=== PATIENT | female | born 1990 | race Caucasian/White ===

== ENCOUNTER 2017-05-19 20:31 | Emergency (ER) | payer BC ==
[~2017-05-19] VITALS: Ht 162.6 cm; Wt 88.5 kg
[~2017-05-19 20:31] MED LIST: NAPROSYN500 MG PO; PROMETHAZINE-COD5 ML PO; PSEUDOEPHEDRINE60 MG PO; SPRINTEC1 EACH PO; TESSALON PERLE100 MG PO
== END 2017-05-19 23:40 | disposition home or self-care (01) ==
LOC: ED 20:31
DX: S93.402A Sprain of unspecified ligament of left ankle, initial encounter (principal); Z90.89 Acquired absence of other organs; Z90.49 Acquired absence of other specified parts of digestive tract; Z88.8 Allergy status to other drugs, medicaments and biological substances; Z88.2 Allergy status to sulfonamides; Z88.1 Allergy status to other antibiotic agents; Z88.5 Allergy status to narcotic agent; X50.1XXA Overexertion from prolonged static or awkward postures, initial encounter
CPT/HCPCS: 73610; 99283

== ENCOUNTER 2020-03-16 18:02 | Inpatient (IN) | payer BC ==
--- OUTSIDE RECORDS SUMMARY | ~2020-03-16 | XMS | Encounter Summary ---
Demographics + + + | Address | [address] | | | [place] [address] | + + + | Home Phone | | + + + | Preferred Language | Unknown | + + + | Marital Status | Single | + + + | Taoism Affiliation | 1013 | + + + | Race | Unknown | + + + | Ethnic Group | Unknown | + + + Author + + + | Author | [facility] | | | and Luca | + + + | Organization | [facility] | | | and Sukhjinderana | + + + | Address | Unknown | + + + | Phone | Unavailable | + + + Support + + + + + | Name | Relationship | Address | Phone | + + + + + | Herb Luna | ECON | [address] | | | | | [place], [place] | | | | | [address] | | + + + + + | Arin Diop | ECON | [place], [place] | | | | | [address] | | + + + + + Care Team Providers + +------+ + | Care Petroleum Refining Firer Name | Role | Phone | + +------+ + | Sophia Medrano PCP | Unavailable | + +------+ + Reason for Visit + +--------+ + | Reason | Onset | Comments | | | Date | | + +--------+ + | Appointment | 10/05/ | | | | 2012 | | + +--------+ + Encounter Details +--------+ + + + + | Date | Type | Department | Care Team | Description | +--------+ + + + + | 10/05/ | Telephone | [facility] | Jaime Ricardo MD | Appointment | | 2012 | | GASTROENTEROLOGY | [address] [facility] | | | | | [address] [facility] | [address] [place] | | | | | [address] [place] | [address] | | | | | [address] | | | | | | [phone] | | | +--------+ + + + + Social History + +-------+ +--------+------+ | Tobacco Use | Types | Packs/Day | Years | Date | | | | | Used | | + +-------+ +--------+------+ | Never Assessed | | | | | + +-------+ +--------+------+ + + + | Sex Assigned at | Date Recorded | | | | + + + | Not on file | | + + + documented as of this encounter Miscellaneous Notes Telephone Encounter - Hillary Lowe - 10/06/2012 8:48 AM PSTPatient returned call and was s cheduled for 10/14. elephone Magdalena payne - Hillary Lowe - 10/05/2012 4:18 PM PSTLeft patient a message to schedule with Candido no at 1:30 on 10/07 or 10/14. do cumented in this encounter Plan of Treatment Not on filedocumented as of this encounter Visit Diagnoses Not on filedocumented in this encounter"
--- OUTSIDE RECORDS SUMMARY | ~2020-03-16 | XMS | Encounter Summary ---
Demographics + + + | Address | [address] | | | [place] [address] | + + + | Home Phone | | + + + | Preferred Language | Unknown | + + + | Marital Status | Single | + + + | Spiritism Affiliation | 1013 | + + + | Race | Unknown | + + + | Ethnic Group | Unknown | + + + Author + + + | Author | [facility] | | | and Luca | + + + | Organization | [facility] | | | and Sukhjinderana | [...] [place], [place] | | | | | [address] | | + + + + + | Arin Diop | ECON | [place], [place] | | | | | [address] | | + + + + + Care Team Providers + +------+ + | Care Lab Rn Name | Role | Phone | + +------+ + | Sophia Medrano PCP | Unavailable | + +------+ + Reason for Visit + +--------+ + | Reason | Onset | Comments | | | Date | | + +--------+ + | Appointment | 01/25/ | | | | 2012 | | + +--------+ + Encounter Details +--------+ + + + + | Date | Type | Department | Care Team | Description | +--------+ + + + + | 01/25/ | Telephone | [facility] | Jaime Ricardo MD | Appointment | | 2012 | | GASTROENTEROLOGY | [address] [facility] | | | | | [address] [facility] | [address] [place] | | | | | [address] [place] | [address] | | | | | [address] | | | | | | [phone] | | | +--------+ + + + + Social History + +-------+ +--------+------+ | Tobacco Use | Types | Packs/Day | Years | Date | | | | | Used | | + +-------+ +--------+------+ | Never Smoker | | | | | + +-------+ +--------+------+ + +---+---+---+ | Smokeless Tobacco: | | | | | Never Used | | | | + +---+---+---+ + + +---------+ + | Alcohol Use | Drinks/Week | oz/Week | Comments | + + +---------+ + | No | | | | + + +---------+ + + + + | Sex Assigned at | Date Recorded | | | | + + + | Not on file | | + + + documented as of this encounter Miscellaneous Notes Telephone Encounter - Thelma Villavicencio RN - 01/25/2013 5:28 PM PDTNoted elephone Renetta Villalobos - 01/25/2013 4:42 PM PDTPatient called to let Jose know she has a appo intment at [facility] On February 01 at 9:00. If you have any questions please call her isabel k on her home number. documen todd in this encounter Plan of Treatment Not on filedocumented as of this encounter Visit Diagnoses Not on filedocumented in this encounter"
--- OUTSIDE RECORDS SUMMARY | ~2020-03-16 | XMS | Encounter Summary ---
Demographics + + + | Address | [address] | | | [place] [address] | + + + | Home Phone | | + + + | Preferred Language | Unknown | + + + | Marital Status | Single | + + + | Congregation Affiliation | 1013 | + + + | Race | Unknown | + + + | Ethnic Group | Unknown | + + + Author + + + | Author | [facility] | | | and Luca | + + + | Organization | [facility] | | | and Sukhjinderana | [...] [place], [place] | | | | | [address] | | + + + + + | Arin Diop | ECON | [place], [place] | | | | | [address] | | + + + + + Care Team Providers + +------+ + | Care Ota Name | Role | Phone | + +------+ + | Sophia Medrano | PCP | Unavailable | + +------+ + Reason for Visit +--------+--------+ + | Reason | Onset | Comments | | | Date | | +--------+--------+ + | Other | 02/16/ | | | | 2012 | | +--------+--------+ + Encounter Details +--------+ + + + + | Date | Type | Department | Care Team | Description | +--------+ + + + + | 02/16/ | Telephone | [facility] | Jaime Ricardo MD | Other | | 2012 | | GASTROENTEROLOGY | [address], [facility] | | | | | [address] [facility] | [address] [place] | | | | | [address] [place], [place] | [address] | | | | | [address] | | | | | | [phone] | | | +--------+ + + + [...] Telephone Encounter - Thelma Villavicencio RN - 02/17/2013 2:42 PM PDTLeft message that Fiordaliza Ricardo recommends a 24 hr stool study. What lab shall we send order to.Electronically sign ed by Thelma Villavicencio, HANNAH at 02/17/2013 2:44 PM PDTTelephone Encounter - Karon Watson - 02/17/2013 2:01 PM PDTPatient is calling nurse back. She states it is ok to leave [facility] on her phone. elephone En counter - Renetta Lopez - 02/17/2013 1:14 PM PDTPatient called back to speak with Jose. [place] is at work all day and cant answer her phone. She said she would try to take a break t o call Jose again. elephone Encounter - Thelma Villavicencio RN - 02/16/2013 4:04 PM PDTLeft message to call for furt her work up recommendations. Needs 24 hr stool collection study. documented in this encounter Plan of Treatment Not on filedocumented as of this encounter Visit Diagnoses Not on filedocumented in this encounter"
--- OUTSIDE RECORDS SUMMARY | ~2020-03-16 | XMS | Encounter Summary ---
Demographics + + + | Address | [address] | | | [place] [address] | + + + | Home Phone | | + + + | Preferred Language | Unknown | + + + | Marital Status | Single | + + + | Cheondoism Affiliation | 1013 | + + + | Race | Unknown | + + + | Ethnic Group | Unknown | + + + Author + + + | Author | [facility] | | | and Luca | + + + | Organization | [facility] | | | and Sukhjinderana | [...] [place], [place] | | | | | [address] | | + + + + + | Arin Diop | ECON | [place], [place] | | | | | [address] | | + + + + + Care Team Providers + +------+ + | Care Clinching Machine Operator Name | Role | Phone | + +------+ + | Sophia Medrano PCP | Unavailable | + +------+ + Encounter Details +--------+ + + + + | Date | Type | Department | Care Team | Description | +--------+ + + + + | 10/07/ | Abstract | [facility] | Jaime Ricardo MD | | | 2012 | | GASTROENTEROLOGY | [address] [place] | | | | | [address] [place] | [address] [place], [place] | | | | | [address] [place], [place] | [address] | | | | | [address] | | | | | | [phone] | | | +--------+ + + + [...] + + documented as of this encounter Plan of Treatment Not on filedocumented as of this encounter Visit Diagnoses Not on filedocumented in this encounter"
--- OUTSIDE RECORDS SUMMARY | ~2020-03-16 | XMS | Encounter Summary ---
Demographics + + + | Address | [address] | | | [place] [address] | + + + | Home Phone | | + + + | Preferred Language | Unknown | + + + | Marital Status | Single | + + + | Taoism Affiliation | 1013 | + + + | Race | Unknown | + + + | Ethnic Group | Unknown | + + + Author + + + | Author | [facility] | | | and Luca | + + + | Organization | [facility] | | | and Sukhjinderana [...] [place], [place] | | | | | [address] | | + + + + + | Arin Diop | ECON | [place], [place] | | | | | [address] | | + + + + + Care Team Providers + +------+ + | Care Vice Admiral Name | Role | Phone | + +------+ + | Sophia Medrano PCP | Unavailable | + +------+ + Reason for Referral Evaluate & Treat (Routine) +--------+ + + + + + | Status | Reason | Specialty | Diagnoses / | Referred By | Referred To | | | | | Procedures | Contact | Contact | +--------+ + + + + + | Closed | Specialty | Gastroenterol | Diagnoses | Harri, | Harri, | | | Services | ogy | Diarrhea | Jaime Porras MD | Jaime oPrras MD | | | Required | | Procedures | [address] | | | | | [place] UPPER GI | [address] [place] | [address] | | | | | ENDOSCOPY,DI | [address] [place] | [place], | | | | | AGNOSIS [place] | [place], [place] | [place] [address] | | | | | UPPER GI | [address] | Phone: | | | | | ENDOSCOPY,BI | Phone: | [phone] | | | | | OPSY [place] | [phone] | Fax: | | | | | COLONOSCOPY, | Fax: | [phone] | | | | | DIAGNOSTIC | [phone] | | | | | | [place] | | | | | | | COLONOSCOPY, | | | | | | | BIOPSY | | | +--------+ + + + + + Reason for Visit + + + | Reason | Comments | + + + | Abdominal Pain | | + + + | Diarrhea | | + + + | Nausea | | + + + Encounter Details +--------+---------+ + + + | Date | Type | Department | Care Team | Description | +--------+---------+ + + + | 10/14/ | Office | [facility] | Jaime Ricardo MD | Diarrhea (Primary | | 2012 | Visit | GASTROENTEROLOGY | [address], [facility] | Dx); Abdominal pain, | | | | [address] [place] | [address] [place], [place] | left lower quadrant | | | | [address] [place], [place] | [address] | | | | | [address] | | | | | | [phone] | | | +--------+---------+ + + + Social History + +-------+ [...] + + documented as of this encounter Last Filed Vital Signs + + + + + | Vital Sign | Reading | Time Taken | Comments | + + + + + | Blood Pressure | 116/72 | 10/14/2012 3:10 PM | | | | | PST | | + + + + + | Pulse | 68 | 10/14/2012 3:10 PM | | | | | PST | | + + + + + | Temperature | - | - | | + + + + + | Respiratory Rate | - | - | | + + + + + | Oxygen Saturation | - | - | | + + + + + | Inhaled Oxygen | - | - | | | Concentration | | | | + + + + + | Weight | 90.7 kg (200 lb) | 10/14/2012 3:10 PM | | | | | PST | | + + + + + | Height | 160 cm (5' 3") | 10/14/2012 3:10 PM | | | | | PST | | + + + + + | Body Mass Index | 35.43 | 10/14/2012 3:10 PM | | | | | PST | | + + + + + documented in this encounter Progress Notes Jaime Ricardo MD - 10/14/2012 6:24 PM PST Subjective: Patient ID: Rashmi Diop is a 22 y.o. female. HPI Comments: 22-year-old female seen in the office for evaluation of diarrhea referred by Sophia Carlos [facility] pathic physician in [place] Patient states that she has had diarrhea since 12 years old. I. diarrhea she means loose w atery frequent stools. On her best day she may have 3 stools a day and on her worst day she 'll have up to 10. Her symptoms have gotten gradually worse her i.e. increasing stool frequ ency over the past years. She has increased sensation to evacuate after meals she'll have u rgency but no incontinence. She is able to retained stool. She has a rare solid stool. Paige porras tried to increase fiber in diet on a weight watcher on a weight management program such as spinach apples and her diarrhea got worse. She will eat the same food and may or may not h ave symptoms of diarrhea. She denies any blood or mucus in the stool. She does not consume s simple sugars discontinue the same a month ago on a dietary weight loss management and not iced no change she tolerates bread and pasta is without difficulties but feels that tomato-b ased sauces increase her symptoms. She discontinued caffeine and noticed that the urgency w as better but stool frequency did not decrease. In the past she's tried intermittent Imodiu m 2 or 3 a day and would notice a decrease in stool frequency. Her weight is been stable paige porras denies chills or fever she status post cholecystectomy 2008 but has noticed no change in h er stool frequency with respect to cholecystectomy status although she avoids fatty foods as that gives her increased stool frequency. She occasionally has red meat which may or may n ot indicate move to evacuate her bowels. She has no correlation between fatigue and stress with increased symptoms. Patient occasionally complains of left lower quadrant cramping associated with defecation. She'll have some sharp pains in the epigastrium usually postprandially which last about 5 m inutes. She drinks water which may or may not help with her symptoms. Family history is positive for her sister having irritable bowel syndrome. Her mother had colonic polyps. Patient also reports that with any anesthetic and with pain medication she gets nausea and convulsions. Stool studies done by Dr. Carlos include negative Clostridium difficile Giardia antigen cr yptosporidia toxoplasma H. pylori ova and parasite and stool cultures were negative. Stools panel showed no evidence for allergic type reactions to milk soy A. angle he again. Free c ortisol was ordered but not completed Abdominal Pain Associated symptoms include diarrhea, nausea and vomiting. Diarrhea Associated symptoms include abdominal pain and vomiting. Filed Vitals: 10/14/12 1510 BP: 116/72 Pulse: 68 PainSc: 0 - No pain Allergies Allergen Reactions Cephalexin Cortisone Morphine Phenergan Past Medical History Diagnosis Date Weight loss Diarrhea Otitis externa, chronic Deviated nasal septum Hypertrophy of nasal turbinates Myalgia Irritable bowel syndrome Hypoglycemia Gastroenteritis Past Surgical History Procedure Date Cholecystectomy Appendectomy Abdominal exploration surgery 2007 endometriosis Arthroscopic knee surgery 2005; 2006 Tonsillectomy and adenoidectomy 2000 Surgery, right arm 2005 per patient Family History Problem Relation Age of Onset High blood pressure Mother Arthritis Mother Other (See Comment) Mother obesity; allergies Arthritis Father High blood pressure Father Other (See Comment) Father allergies; obesity High blood pressure Sister Other (See Comment) Sister obesity History Social History Marital Status: Single Spouse Name: N/A Number of Children: N/A Years of Education: N/A Social History Main Topics Smoking status: Never Smoker Smokeless tobacco: Never Used Alcohol Use: No Drug Use: No Sexually Active: None Other Topics Concern None Social History Narrative None Review of Systems Constitutional: Negative. HENT: Negative. Eyes: Negative. Respiratory: Negative. Cardiovascular: Negative. Gastrointestinal: Positive for nausea, vomiting, abdominal pain and diarrhea. Genitourinary: Negative. Musculoskeletal: Negative. Skin: Negative. Neurological: Negative. Hematological: Negative. Psychiatric/Behavioral: Negative. Objective: Physical Exam Constitutional: She is oriented to person, place, and time. She appears well-developed and well-nourished. No distress. Obese HENT: Head: Normocephalic and atraumatic. Right Ear: External ear normal. Left Ear: External ear normal. Nose: Nose normal. Mouth/Throat: Oropharynx is clear and moist. No oropharyngeal exudate. Eyes: Conjunctivae and EOM are normal. Pupils are equal, round, and reactive to light. Righ t eye exhibits no discharge. Left eye exhibits no discharge. No scleral icterus. Neck: Normal range of motion. Neck supple. No JVD present. No tracheal deviation present. Cardiovascular: Normal rate, regular rhythm, normal heart sounds and intact distal pulses. Exam reveals no friction rub. No murmur heard. Pulmonary/Chest: Effort normal and breath sounds normal. No stridor. No respiratory distres s. She has no wheezes. She has no rales. She exhibits no tenderness. Abdominal: Soft. Bowel sounds are normal. She exhibits no distension and no mass. There is tenderness. There is no guarding. Pain to palpation in the epigastrium and left lower quadrant Musculoskeletal: Normal range of motion. She exhibits no edema and no tenderness. Lymphadenopathy: She has no cervical adenopathy. Neurological: She is alert and oriented to person, place, and time. No cranial nerve defici t. She exhibits normal muscle tone. Coordination normal. Skin: Skin is warm and dry. No rash noted. She is not diaphoretic. No erythema. No pallor. Psychiatric: She has a normal mood and affect. Her behavior is normal. Judgment and thought content normal. Assessment: Diarrhea highly suspect irritable bowel syndrome or variant although is no specific dietary or environmental factor identified given her possibility of symptoms at night able to contr ol her evacuation family history of IBS all positive indicators with respect to the same Plan: At this time the patient is a candidate for upper endoscopy duodenal biopsy and colonoscopy mucosal biopsy. As explained to the patient that the above studies are indicated to rule o ut mucosal defects that might lead to her pattern of diarrhea. In addition at that time we' ll redraw thyroid function test probable TTG and basic metabolic profile. At this time as s he is no symptoms of neuroendocrine abnormality i.e. cutaneous flushing tachycardia etc. do not feel that extensive neuroendocrine day wishes indicated at this juncture. documented in this enc ounter Miscellaneous Notes Miscellaneous - ONSEAN SCAN KATHYA - 10/14/2012 12:00 AM PST documented in this encounter Plan of Treatment + + +--------+ + + | Name | Type | Priori | Associated Diagnoses | Order Schedule | | | | ty | | | + + +--------+ + + | Ambulatory referral | Outpatient | Routin | Diarrhea | Expected: | | to Gastroenterology | Referral | e | | 11/06/2012, Expires: | | | | | | 10/14/2013 | + + +--------+ + + documented as of this encounter Visit Diagnoses + + | Diagnosis | + + | Diarrhea - Primary | + + | Abdominal pain, left lower quadrant | + + documented in this encounter
--- OUTSIDE RECORDS SUMMARY | ~2020-03-16 | XMS | Encounter Summary ---
Demographics + + + | Address | [address] | | | [place] [address] | + + + | Home Phone | | + + + | Preferred Language | Unknown | + + + | Marital Status | Single | + + + | Yazdanism Affiliation | 1013 | + + + | Race | Unknown | + + + | Ethnic Group | Unknown | + + + Author + + + | Author | [facility] | | | and Luca | + + + | Organization | [facility] | | | and Sukhjinderana [...] [place], [place] | | | | | [address] | | + + + + + | Arin Diop | ECON | [place], [place] | | | | | [address] | | + + + + + Care Team Providers + +------+ + | Care Bluing Oven Tender Name | Role | Phone | + +------+ + | Sophia Medrano | PCP | Unavailable | + +------+ + Reason for Visit + +--------+ + | Reason | Onset | Comments | | | Date | | + +--------+ + | Diarrhea | 12/28/ | | | | 2012 | | + +--------+ + Encounter Details +--------+ + + + + | Date | Type | Department | Care Team | Description | +--------+ + + + + | 12/28/ | Telephone | [facility] | Jaime Ricardo MD | Diarrhea | | 2012 | | GASTROENTEROLOGY | [address], [facility] | | | | | [address] [facility] | [address] [place], [place] | | | | | [address] [place] | [address] | | | | | [address] | | | | | | [phone] | | | +--------+ + + + [...] Telephone Encounter - Thelma Villavicencio RN - 01/14/2013 9:05 AM PDTLeft message for davidson rao that I will fax order for small bowel enterovu to [facility] and she can call there t o schedule. Dr Ricardo ok if she waits until school is out unless symptoms increase.Bebetoi osiris signed by Thelma Villavicencio RN at 01/14/2013 9:06 AM PDTTelephone Encounter - Thelma Rebollar RN - 12/31/2012 9:42 AM PDTLeft message for patient that ok to have small bowel EnteroVu done at [facility] and ok to wait until school is out if she is doing well . Call to confirm. P DTTelephone Encounter - Thelma Villavicencio RN - 12/28/2012 11:08 AM PDTShelby reports juan j t she continues to have 3-4 loose stools a day. Some cramping but nothing new for her. No blood in stool. Informed her Dr Ricardo recommends a small bowel EnteroVu. Hgb has dropped fr om earlier CBC from 13.9 To 12.4. She thinks she had many years ago. She asks if it can be done at [facility] as she is working and going to school part time. She is out [place] [facility] [place] January 30. Tabitha mented in this encounter Plan of Treatment Not on filedocumented as of this encounter Visit Diagnoses Not on filedocumented in this encounter"
--- OUTSIDE RECORDS SUMMARY | ~2020-03-16 | XMS | Encounter Summary ---
Demographics + + + | Address | [address] | | | [place] [address] | + + + | Home Phone | | + + + | Preferred Language | Unknown | + + + | Marital Status | Single | + + + | Yazidi Affiliation | 1013 | + + + | Race | Unknown | + + + | Ethnic Group | Unknown | + + + Author + + + | Author | [facility] | | | and Luca | + + + | Organization | [facility] | | | and Sukhjinderana [...] [place], [place] | | | | | [address] | | + + + + + | Arin Diop | ECON | [place], [place] | | | | | [address] | | + + + + + Care Team Providers + +------+ + | Care Continuous Improvement Engineer Name | Role | Phone | + +------+ + | Sophia Medrano | PCP | Unavailable | + +------+ + Reason for Visit + +--------+ + | Reason | Onset | Comments | | | Date | | + +--------+ + | Diarrhea | 03/08/ | | | | 2012 | | + +--------+ + Encounter Details +--------+ + + + + | Date | Type | Department | Care Team | Description | +--------+ + + + + | 03/08/ | Telephone | [facility] | Jaime Ricardo MD | Diarrhea | | 2012 | | GASTROENTEROLOGY | [address], [facility] | | | | | [address] [facility] | [address] [place], [place] | | | | | [address] [place] | [address] | | | | | [address] | | | | | | [phone] | | | +--------+ + + + [...] Telephone Encounter - Thelma Villavicencio RN - 03/08/2013 10:51 AM PDTLeft message that Fiordaliza Ricardo recommends 24 stool study if diarrhea continues. Call our office and give us update on her status. do cumented in this encounter Plan of Treatment Not on filedocumented as of this encounter Visit Diagnoses Not on filedocumented in this encounter"
--- OUTSIDE RECORDS SUMMARY | ~2020-03-16 | XMS | Encounter Summary ---
Demographics + + + | Address | [address] | | | [place] [address] | + + + | Home Phone | | + + + | Preferred Language | Unknown | + + + | Marital Status | Single | + + + | Christianity Affiliation | 1013 | + + + | Race | Unknown | + + + | Ethnic Group | Unknown | + + + Author + + + | Author | [facility] | | | and Luca | + + + | Organization | [facility] | | | and Sukhjinderana [...] [place], [place] | | | | | [address] | | + + + + + | Arin Aparicio | ECON | [place], [place] | | | | | [address] | | + + + + + Care Team Providers + +------+ + | Care Geosciences Professor Name | Role | Phone | + +------+ + | Sophia Medrano PCP | Unavailable | + +------+ + Encounter Details +--------+ + + + + | Date | Type | Department | Care Team | Description | +--------+ + + + + | 11/06/ | Hospital | [facility] | Jaime Ricardo MD | | | 2012 | Encounter | MED [facility] | [address], [place] | | | | | [address] | [address] [place], [place] | | | | | [place], [place] | [address] | | | | | [address] | | | | | | [phone] | | | +--------+ + + + [...] + + documented as of this encounter Medications at Time of Discharge + + + +---------+ + + | Medication | Sig | Dispensed | Refills | Start | End Date | | | | | | Date | | + + + +---------+ + + | augmented | use as directed | | 0 | 03/11/20 | | | betamethasone | | | | 11 | | | dipropionate | | | | | | | (DIPROLENE) 0.05 % | | | | | | | ointment | | | | | | + + + +---------+ + + | | Place 1 each | | 0 | | | | etonogestrel-ethinyl | vaginally See Admin | | | | | | estradiol | Instructions. Insert | | | | | | (NUVARING) | vaginally and leave | | | | | | 0.12-0.015 MG/24HR | in place for 3 | | | | | | vaginal ring | consecutive weeks, | | | | | | | then remove for 1 | | | | | | | week. | | | | | + + + +---------+ + + | ibuprofen (ADVIL) | Take 200 mg by | | 0 | 05/01/20 | | | 200 mg tablet | mouth. | | | 12 | | + + + +---------+ + + | ofloxacin | 10 drops to right | | 0 | 03/06/20 | | | (OCUFLOX) 0.3% | ear daily just | | | 11 | | | ophthalmic solution | before bedtime | | | | | + + + +---------+ + + | Oxymetazoline HCl | SOLN: one spray for | | 0 | 03/06/20 | | | (AFRIN NASAL SPRAY | one to 2 days, then | | | 11 | | | NA) | one day off | | | | | + + + +---------+ + + documented as of this encounter Miscellaneous Notes Op Note - Jaime Ricardo MD - 11/06/2012 12:40 PM [place], [place] [id number] Patient Name: RASHMI APARICIO Provider: Jaime Ricardo MD Unit #: [id number] Location: [facility] : 1990 Patient Name: Rashmi Aparicio Gender: F Procedure Date: 11/06/2012 12:40 PM Date of : 1990 Age: 22 Admit Type: Outpatient Room: [facility] Room 1 Note Status: Finalized Attending MD: Jaime Ricardo MD Procedure: Colonoscopy Indications: Chronic diarrhea Providers: Jaime Ricardo MD, Jing Sanchez RN, Jacque Panda, Lumber Sorter Machine, Anderson Allan MD (Anesthesia Staff) Medicines: Sedation Required Anesthesia Staff Assistance Complications: No imm ediate complications. Estimated blood loss: None. Procedure: - Prior to the procedure, a History and Physical was performed, and patient medications, allergies and sensitivities were reviewed. The patient's tolerance of previous anesthesia was reviewed. - The risks and benefits of the procedure and the sedation options and risks were discussed with the patient. All questions were answered and informed consent was obtained. - Patient identification and proposed procedure were verified prior to the procedure by the physician, the nurse, the anesthesiologist and the network operations technician. The procedure was verified in the endoscopy suite. - Airway Examination: normal oropharyngeal airway and neck mobility and Mallampati Class II (the uvula but not tonsillar pillars visualized). - Mental Status Examination: anxious. - ASA Grade Assessment: II - A patient with mild systemic disease. - After reviewing the risks and benefits, the patient was deemed in satisfactory condition to undergo the procedure. - The anesthesia plan was to use monitored anesthesia care (MAC). - Immediately prior to administration of medications, the patient was re-assessed for adequacy to receive sedatives. - The heart rate, respiratory rate, oxygen saturations, blood pressure, adequacy of pulmonary ventilation, and response to care were monitored throughout the procedure. - The physical status of the patient was re-assessed after the procedure. After I obtained informed consent, the scope was passed under direct vision. Throughout the procedure, the patient's blood pressure, pulse, and oxygen saturations were monitored continuously. The endoscope was introduced through the anus and advanced to 20 cm into the ileum. The colonoscopy was performed without difficulty. The patient tolerated the procedure well. The quality of the bowel preparation was good. Findings: The perianal and digital rectal examinations were normal. Pertinent negatives include normal sphincter tone and no palpable rectal lesions. The sigmoid colon, descending colon and transverse colon were moderately redundant. The terminal ileum appeared normal. Biopsies were taken with a cold forceps for histology. Verification of patient identification for the specimen was done. Estimated blood loss was minimal. There was moderate spasm in the sigmoid colon. Biopsies were taken with a cold forceps for histology. Verification of patient identification for the specimen was done. Estimated blood loss was minimal. The exam was otherwise without abnormality.The retroflexed view of the distal rectum and anal verge was normal and showed no anal or rectal abnormalities. Impression: - Redundant colon. - The examined portion of the ileum was normal. This was biopsied. - Moderate colonic spasm consistent with irritable bowel syndrome. - The examination was otherwise normal. Recommendation: - Discharge patient to home (ambulatory). - Return to previous diet today. - Continue present medications. - Await pathology results. - Telephone GI clinic for pathology results in 1 week. Jaime Ricardo MD Signed Date: 11/06/2012 1:23 PM Number of Addenda: 0 Note initiated on 11/06/2012 12:39 PM Scope Withdrawal Time: 11 minutes 01 second Total Procedure Duration Time: 17 minutes 47 seconds Jaime Ricardo MD 1324 p Note - Emanuel Ricardo MD - 11/06/2012 12:40 PM PDT [place], [place] [id number] Patient Name: RASHMI APARICIO Provider: Jaime Ricardo MD Unit #: [id number] Location: [facility] #: [id number] : 1990 Patient Name: Rashmi Aparicio Gender: F Procedure Date: 11/06/2012 12:40 PM Date of : 1990 Age: 22 Admit Type: Outpatient Room: Endo Room 1 Note Status: Finalized Attending MD: Jaime Ricardo MD Procedure: Upper GI endoscopy Indications: Diarrhea Providers: Jaime Ricardo MD, Jing Sanchez RN, Jacque Panda, Lumber Sorter Machine, Anderson Allan MD (Anesthesia Staff) Medicines: Sedation Required Anesthesia Staff Assistance Complications: No imm ediate complications. Estimated blood loss: Minimal. Procedure: - Prior to the procedure, a History and Physical was performed, and patient medications, allergies and sensitivities were reviewed. The patient's tolerance of previous anesthesia was reviewed. - The risks and benefits of the procedure and the sedation options and risks were discussed with the patient. All questions were answered and informed consent was obtained. - Patient identification and proposed procedure were verified prior to the procedure by the physician, the nurse, the anesthesiologist and the network operations technician. The procedure was verified in the endoscopy suite. - Airway Examination: normal oropharyngeal airway and neck mobility and Mallampati Class II (the uvula but not tonsillar pillars visualized). - Mental Status Examination: anxious. - ASA Grade Assessment: II - A patient with mild systemic disease. - After reviewing the risks and benefits, the patient was deemed in satisfactory condition to undergo the procedure. - The anesthesia plan was to use monitored anesthesia care (MAC). - Immediately prior to administration of medications, the patient was re-assessed for adequacy to receive sedatives. - The heart rate, respiratory rate, oxygen saturations, blood pressure, adequacy of pulmonary ventilation, and response to care were monitored throughout the procedure. - The physical status of the patient was re-assessed after the procedure. After obtaining informed consent, the endoscope was passed under direct vision. Throughout the procedure, the patient's blood pressure, pulse, and oxygen saturations were monitored continuously. The Endoscope was introduced through the mouth, and advanced to the third part of duodenum. The upper GI endoscopy was accomplished without difficulty. The patient tolerated the procedure well. Findings: The cricopharyngeus, upper third of the esophagus, middle third of the esophagus, lower third of the esophagus and lower esophageal sphincter were normal. The Z-line was regular and was found 40 cm from the incisors. The entire examined stomach was normal. Biopsies were taken with a cold forceps for Helicobacter pylori testing using CLOtest. Estimated blood loss was minimal. The ampulla, duodenal bulb, first part of the duodenum, 2nd part of the duodenum and 3rd part of the duodenum were normal. Biopsies were taken with a cold forceps for histology. Estimated blood loss was minimal. The retroflexed view confirmed previous findings, Impression: - Normal at the cricopharyngeus, in the upper third of the esophagus, in the middle third of the esophagus, in the lower third of the esophagus and lower esophageal sphincter. - Z-line regular, 40 cm from the incisors. - Normal stomach. - Normal Ampulla, duodenal bulb, first part of the duodenum, 2nd part of the duodenum and 3rd part of the duodenum. This was biopsied. Recommendation: - Return to previous diet today. - Perform a colonoscopy today. - Continue present medications. - Await pathology results. - Telephone GI clinic for pathology results in 1 week. Jaime Ricardo MD Signed Date: 11/06/2012 1:19 PM Number of Addenda: 0 Note initiated on 11/06/2012 12:40 PM Scope Withdrawal Time: N/A Total Procedure Duration Time: 04 minutes 18 seconds Jaime Ricardo MD 1320 iscellaneous - ONBA SE [facility]AN [facility] - 11/06/2012 12:00 AM PDT 10 :18 AM PDTdocumented in this encounter Plan of Treatment Not on filedocumented as of this encounter Procedures + +--------+ + + + | Procedure Name | Priori | Date/Time | Associated Diagnosis | Comments | | | ty | | | | + +--------+ + + + | HELICOBACTER PYLORI | Routin | 11/06/2012 | | Results for this | | BIOPSY | e | 1:40 PM | | procedure are in the | | | | PDT | | results section. | + +--------+ + + + | HELICOBACTER PYLORI | Routin | 11/06/2012 | | Results for this | | BIOPSY | e | 1:40 PM | | procedure are in the | | | | PDT | | results section. | + +--------+ + + + | OVA AND PARASITE | Routin | 11/06/2012 | | Results for this | | EXAMINATION | e | 1:18 PM | | procedure are in the | | | | PDT | | results section. | + +--------+ + + + | CRYPTOSPORIDIUM AG | Routin | 11/06/2012 | | Results for this | | | e | 1:18 PM | | procedure are in the | | | | PDT | | results section. | + +--------+ + + + | FECAL LEUKOCYTES | Routin | 11/06/2012 | | Results for this | | | e | 1:18 PM | | procedure are in the | | | | PDT | | results section. | + +--------+ + + + | FECAL LEUKOCYTES | Routin | 11/06/2012 | | Results for this | | | e | 1:18 PM | | procedure are in the | | | | PDT | | results section. | + +--------+ + + + | GIARDIA AG, EIA, | Routin | 11/06/2012 | | Results for this | | STOOL | e | 1:18 PM | | procedure are in the | | | | PDT | | results section. | + +--------+ + + + | CLOSTRIDIUM | Routin | 11/06/2012 | | Results for this | | DIFFICILE TOXIN | e | 1:18 PM | | procedure are in the | | | | PDT | | results section. | + +--------+ + + + | CLOSTRIDIUM | Routin | 11/06/2012 | | Results for this | | DIFFICILE TOXIN | e | 1:18 PM | | procedure are in the | | | | PDT | | results section. | + +--------+ + + + | CULTURE, STOOL | Routin | 11/06/2012 | | Results for this | | | e | 1:18 PM | | procedure are in the | | | | PDT | | results section. | + +--------+ + + + documented in this encounter Results Helicobactor pylori Biopsy (11/06/2012 1:40 PM PDT) + + + + + + | Component | Value | Ref Range | Performed | Pathologist | | | | | At | Signature | + + + + + + | GASTRIC | Negative for Urease | | [facility] | | | BIOPSY | | | [facility] | | | UREASE TEST | | | MEDICAL | | | | | | CENTER - | | | | | | LABORATORY | | + + + + + + + + | Specimen | + + | | + + + + + + + | Performing | Address | City/State/Zipcode | Phone Number | | Organization | | | | + + + + + | [facility] | [address] | [place] | [phone] | | [facility] | | [address] | | | - LABORATORY | | | | + + + + + | [facility] | [address] | [place], [place] | | | [facility] | | [address] | | | - LABORATORY | | | | + + + + + Helicobactor pylori Biopsy (11/06/2012 1:40 PM PDT) + + + + + + | Component | Value | Ref Range | Performed | Pathologist | | | | | At | Signature | + + + + + + | GASTRIC | H. PYLORI BIOPSY: | | [facility] | | | BIOPSY | Negative for Urease | | [facility] | | | UREASE TEST | | | MEDICAL | | | | | | CENTER - | | | | | | LABORATORY | | + + + + + + + + | Specimen | + + | Soft tissue sample | | (specimen) - Other | + + + + + | Narrative | Performed At | + + + | Collect By: | [facility] | | | [facility] | | | [facility] | | | - LABORATORY | + + + + + + + + | Performing | Address | City/State/Zipcode | Phone Number | | Organization | | | | + + + + + | [facility] | [address] | [place] | [phone] | | [facility] | | [address] | | | - LABORATORY | | | | + + + + + | [facility] | [address] | [place] | | | [facility] | | [address] | | | - LABORATORY | | | | + + + + + Clostridium difficile Toxin (11/06/2012 1:18 PM PDT) + + + + + + | Component | Value | Ref Range | Performed | Pathologist | | | | | At | Signature | + + + + + + | C difficile | No Clostridium Difficile | | [facility] | | | Toxins | toxin detected.Up to 3 | | [facility] | | | A+B, EIA | stool specimens (notmore | | MEDICAL | | | | than 1 per day) tested | | CENTER - | | | | per patient.NEGATIVE | | LABORATORY | | + + + + + + + + | Specimen | + + | | + + + + + + + | Performing | Address | City/State/Zipcode | Phone Number | | Organization | | | | + + + + + | [facility] | [address] | [place] | [phone] | | [facility] | | [address] | | | - LABORATORY | | | | + + + + + | [facility] | [address] | [place], [place] | | | [facility] | | [id number] [place] [address] | | | - LABORATORY | | | | + + + + + Fecal leukocytes (11/06/2012 1:18 PM PDT) + + + + + + | Component | Value | Ref Range | Performed | Pathologist | | | | | At | Signature | + + + + + + | Source | STOOL | | [facility] | | | | | | [facility] | | | | | | MEDICAL | | | | | | CENTER - | | | | | | LABORATORY | | + + + + + + | Fecal | NONE SEEN | | [facility] | | | Leukocytes | | | [facility] | | | | | | MEDICAL | | | | | | CENTER - | | | | | | LABORATORY | | + + + + + + + + | Specimen | + + | | + + + + + + + | Performing | Address | City/State/Zipcode | Phone Number | | Organization | | | | + + + + + | [facility] | [address] | [place], [place] | [phone] | | [facility] | | [address] | | | - LABORATORY | | | | + + + + + | [facility] | [address] | [place] | | | [facility] | | [address], [facility] | | | - LABORATORY | | | | + + + + + Clostridium difficile Toxin (11/06/2012 1:18 PM PDT) + + + + + + | Component | Value | Ref Range | Performed | Pathologist | | | | | At | Signature | + + + + + + | C difficile | No Clostridium | | [facility] | | | Toxins | Difficile toxin | | [facility] | | | A+B, EIA | detected. Up to 3 stool | | MEDICAL | | | | specimens (not more than | | CENTER - | | | | 1 per day) tested per | | LABORATORY | | | | patient.RESULT:NEGATIVE | | | | | | | | | | | | per patient. | | | | | |RESULT: | | | | | |NEGATIVE | | | | + + + + + + + + | Specimen | + + | Other - Other | + + + + + + + | Performing | Address | City/State/Zipcode | Phone Number | | Organization | | | | + + + + + | [facility] | [address] | [place] | [phone] | | [facility] | | [address] | | | - LABORATORY | | | | + + + + + | [facility] | [address] | [place], [place] | | | [facility] | | [address] | | | - LABORATORY | | | | + + + + + Ova and Parasite Examination (11/06/2012 1:18 PM PDT) + + + + + + | Component | Value | Ref Range | Performed | Pathologist | | | | | At | Signature | + + + + + + | Ova + | SEE BELOWComment: | | [facility] | | | Parasite | Accession No. | | [facility] | | | Exam | [id number] Source | | MEDICAL | | | | StoolResult TRICHROME | | CENTER - | | | | STAIN: No OVA or | | LABORATORY | | | | Parasites Seen. Testing | | | | | | Performed: [place] [facility] | | | | | | [facility] | | | | | | [place],[address], | | | | | | [place] [address] | | | | | | CLIA: | | | | | | [id number] | | | | | | [place]: No OVA or | | | | | | Parasites seen. | | | | + + + + + + | Specimen | SEE BELOWComment: Report | | [place] | | | Status | Status Final | | [facility] | | | | 11/07/2012Testing | | MEDICAL | | | | Performed: [place] | | [place] - | | | | [facility] | | LABORATORY | | | | [place],[address], | | | | | | [place] [address] | | | | | | CLIA: [id number] | | | | + + + + + + + + | Specimen | + + | Other - Other | + + + + + + + | Performing | Address | City/State/Zipcode | Phone Number | | Organization | | | | + + + + + | [facility] | [address] | [place], [place] | [phone] | | [facility] | | [address] | | | - LABORATORY | | | | + + + + + | [facility] | [address] | [place], [place] | | | [facility] | | [address] | | | - LABORATORY | | | | + + + + + Cryptosporidium Ag (11/06/2012 1:18 PM PDT) + + + + + + | Component | Value | Ref Range | Performed | Pathologist | | | | | At | Signature | + + + + + + | Cryptospori | Negative for | | [facility] | | | dium | Cryptosporidium Antigen | | [facility] | | | Antigen | by Rapid Immunoassay | | MEDICAL | | | | testing. | | CENTER - | | | | | | LABORATORY | | + + + + + + + + | Specimen | + + | Other - Other | + + + + + + + | Performing | Address | City/State/Zipcode | Phone Number | | Organization | | | | + + + + + | [facility] | [address] | [place] | [phone] | | [facility] | | [address] | | | - LABORATORY | | | | + + + + + | [facility] | [address] | [place], [place] | | | [facility] | | [address] | | | - LABORATORY | | | | + + + + + Giardia Ag, EIA, Stool (11/06/2012 1:18 PM PDT) + + + + + + | Component | Value | Ref Range | Performed | Pathologist | | | | | At | Signature | + + + + + + | Giardia | Negative for Giardia | | [facility] | | | Antigen, | Lamblia Antigen by Rapid | | [facility] | | | Stool | Immunoassay. | | MEDICAL | | | |by Rapid Immunoassay. | | CENTER - | | | | | | LABORATORY | | + + + + + + + + | Specimen | + + | Other - Other | + + + + + + + | Performing | Address | City/State/Zipcode | Phone Number | | Organization | | | | + + + + + | [facility] | [address] | [place] | [phone] | | [facility] | | [address] | | | - LABORATORY | | | | + + + + + | [facility] | [address] | [place] | | | [facility] | | [address] | | | - LABORATORY | | | | + + + + + Culture, Stool (11/06/2012 1:18 PM PDT) + + + + + -+ | Component | Value | Ref Range | Performed | Pathologist | | | | | At | Signature | + + + + + -+ | Gram Stain | GRAM STAIN: | | [facility] | | | Result | RARE WBC/HPF | | [facility] | | | | MIXED INDIGENOUS DARRIAN | | MEDICAL | | | | | | CENTER - | | | | | | LABORATORY | | + + + + + -+ | Culture, | Indig/Darrian | | [facility] | | | stool | (Reportable)Reduced Gram | | [facility] | | | | Negative Darrian No | | MEDICAL | | | | Salmonella, Shigella, | | CENTER - | | | | Aeromonas, Pleisiomonas | | LABORATORY | | | | or Yersinia | | | | | | isolated.Final Report | | | | | | (Reportable)- | | | | + + + + + -+ | E coli, | Negative for Shiga | | [facility] | | | Shiga toxin | Toxin-producing strain | | [facility] | | | Assay | of Escherichia coli | | MEDICAL | | | | (STEC). Physician Note: | | CENTER - | | | | Symptoms of STEC are not | | LABORATORY | | | | well differentiated and | | | | | | may resemble | | | | | | Appendicitis, | | | | | | Inflammatory Bowel | | | | | | Disease, Infectious | | | | | | Colitis, and C. | | | | | | Difficile Associated | | | | | | Disease.RESULT:NEGATIVE | | | | | |and C. Difficile Associated Disease. | | | | | |RESULT: | | | | | |NEGATIVE | | | | + + + + + -+ | Campylobact | Negative for | | [facility] | | | er Ag | CAMPYLOBACTER | | [facility] | | | | SPECIES.RESULT:NEGATIVE | | MEDICAL | | | |NEGATIVE | | CENTER - | | | | | | LABORATORY | | + + + + + -+ + + | Specimen | + + | Other - Other | + + + + + + + | Performing | Address | City/State/Zipcode | Phone Number | | Organization | | | | + + + + + | [facility] | [address] | [place] | [phone] | | [facility] | | [address] | | | - LABORATORY | | | | + + + + + | [facility] | [address] | [place] | | | [facility] | | [address] | | | - LABORATORY | | | | + + + + + Fecal leukocytes (11/06/2012 1:18 PM PDT) + + + + + + | Component | Value | Ref Range | Performed | Pathologist | | | | | At | Signature | + + + + + + | Source | STOOL | | [facility] | | | | | | [facility] | | | | | | MEDICAL | | | | | | CENTER - | | | | | | LABORATORY | | + + + + + + | Fecal | NONE SEEN | | [facility] | | | Leukocytes | | | [facility] | | | | | | MEDICAL | | | | | | CENTER - | | | | | | LABORATORY | | + + + + + + + + | Specimen | + + | | + + + + + | Narrative | Performed At | + + + | LIQUID STOOL FROM ENDO | [facility] | | | [facility] | | | [facility] | | | - LABORATORY | + + + + + + + + | Performing | Address | City/State/Zipcode | Phone Number | | Organization | | | | + + + + + | [facility] | [address] | [place] | [phone] | | [facility] | | [address] | | | - LABORATORY | | | | + + + + + | [facility] | [address] | [place], [place] | | | [facility] | | [address] | | | - LABORATORY | | | | + + + + + documented in this encounter Visit Diagnoses Not on filedocumented in this encounter"
--- OUTSIDE RECORDS SUMMARY | ~2020-03-16 | XMS | Encounter Summary ---
Demographics + + + | Address | [address] | | | [place] [address] | + + + | Home Phone | | + + + | Preferred Language | Unknown | + + + | Marital Status | Single | + + + | Restorationism Affiliation | 1013 | + + + | Race | Unknown | + + + | Ethnic Group | Unknown | + + + Author + + + | Author | [facility] | | | and Luca | + + + | Organization | [facility] | | | and Sukhjinderana [...] [place], [place] | | | | | [address] | | + + + + + | Arin Diop | ECON | [place], [place] | | | | | [address] | | + + + + + Care Team Providers + +------+ + | Care Fashion Photographer Name | Role | Phone | + +------+ + | Sophia Medrano | PCP | Unavailable | + +------+ + Reason for Visit +---------+--------+ + | Reason | Onset | Comments | | | Date | | +---------+--------+ + | Results | 11/12/ | | | | 2012 | | +---------+--------+ + Encounter Details +--------+ + + + + | Date | Type | Department | Care Team | Description | +--------+ + + + + | 11/12/ | Telephone | [facility] | Jaime Ricardo MD | Results | | 2012 | | GASTROENTEROLOGY | [address], [place] | | | | | [address] [facility] | [address] [place] | | | | | [address] [place] | [address] | | | | | [address] | | | | | | [phone] | | | +--------+ + + + [...] Telephone Encounter - Thelma Villavicencio RN - 11/13/2012 10:33 AM PDTInformed patient al l biopsies from colon and duodenum normal. Dr Ricardo would like some labs to complete work u p for diarrhea. CBC, ESR, CRP, Chem panel, Lipase, T4 and celiac studies [facility] [place]. P DTTelephone Encounter - Hillary Lowe - 11/12/2012 2:10 PM PDTPatient returned call about re sults. documented in this enco unter Plan of Treatment Not on filedocumented as of this encounter Visit Diagnoses Not on filedocumented in this encounter"
--- OUTSIDE RECORDS SUMMARY | ~2020-03-16 | XMS | Encounter Summary ---
Demographics + + + | Address | [address] | | | [place] [address] | + + + | Home Phone | | + + + | Preferred Language | Unknown | + + + | Marital Status | Single | + + + | Tenriism Affiliation | 1013 | + + + | Race | Unknown | + + + | Ethnic Group | Unknown | + + + Author + + + | Author | [facility] | | | and Luca | + + + | Organization | [facility] | | | and Sukhjinderana | [...] [place], [place] | | | | | [address] | | + + + + + | Arin Diop | ECON | [place], [place] | | | | | [address] | | + + + + + Care Team Providers + +------+ + | Care Abrading Machine Tender Name | Role | Phone | + +------+ + | Sophia Medrano | PCP | Unavailable | + +------+ + Reason for Visit +---------+--------+ + | Reason | Onset | Comments | | | Date | | +---------+--------+ + | Results | 02/02/ | | | | 2012 | | +---------+--------+ + Encounter Details +--------+ + + + + | Date | Type | Department | Care Team | Description | +--------+ + + + + | 02/02/ | Telephone | [facility] | Jaime Ricardo MD | Results | | 2012 | | GASTROENTEROLOGY | [address], [place] | | | | | [address] [facility] | [address] | | | | | [address] [place] | [address] | | | | | [address] | | | | | | [phone] | | | +--------+ + + + [...] this encounter Miscellaneous Notes Telephone Encounter - Blank Valderrama RN - 02/02/2013 1:08 PM PDTPatient returned the call I'd left for her this morning. Notified her that Dr Ricardo reviewed x-ray she had done y esterday and said they are normal, no sign of Crohn's. She states her symptom of diarrhea co ntinues, no change. Occurs daily with some days being worse than others but it's never "good ". Message to Dr Ricardo. documented in this encounter Plan of Treatment Not on filedocumented as of this encounter Visit Diagnoses Not on filedocumented in this encounter
--- OUTSIDE RECORDS SUMMARY | ~2020-03-16 | XMS | Clinical Summary ---
Demographics + + + | Address | [address] | | | [place] [address] | + + + | Home Phone | | + + + | Preferred Language | Unknown | + + + | Marital Status | Single | + + + | Adventism Affiliation | 1013 | + + + | Race | Unknown | + + + | Ethnic Group | Unknown | + + + Author + + + | Author | [facility] | | | and Luca | + + + | Organization | [facility] | | | and [...] [place], [place] | | | | | [address] | | + + + + + | Arin Diop | ECON | [place], [place] | | | | | [address] | | + + + + + Care Team Providers + +------+ + | Care Learning Development Specialist Name | Role | Phone | + +------+ + | Sophia Medrano PCP | Unavailable | + +------+ + Allergies + + + +--------+ + | Active Allergy | Reactions | Severity | Noted | Comments | | | | | Date | | + + + +--------+ + | Cephalexin | | | | | + + + +--------+ + | Cortisone | | | | | + + + +--------+ + | Morphine | | | | | + + + +--------+ + | Promethazine Hcl | | | | | + + + +--------+ + Medications + + + +---------+------+------+-------+ | Medication | Sig | Dispensed | Refills | Star | End | Statu | | | | | | t | Date | s | | | | | | Date | | | + + + +---------+------+------+-------+ | ibuprofen (ADVIL) | Take 200 mg by | | 0 | 09/1 | | Activ | | 200 mg tablet | mouth. | | | 420 | | e | | | | | | 12 | | | + + + +---------+------+------+-------+ | Oxymetazoline HCl | SOLN: one spray for | | 0 | 07/2 | | Activ | | (AFRIN NASAL SPRAY | one to 2 days, then | | | 0/20 | | e | | NA) | one day off | | | 11 | | | + + + +---------+------+------+-------+ | ofloxacin | 10 drops to right | | 0 | 07/2 | | Activ | | (OCUFLOX) 0.3% | ear daily just | | | 0/20 | | e | | ophthalmic solution | before bedtime | | | 11 | | | + + + +---------+------+------+-------+ | augmented | use as directed | | 0 | 07/2 | | Activ | | betamethasone | | | | 5/20 | | e | | dipropionate | | | | 11 | | | | (DIPROLENE) 0.05 % | | | | | | | | ointment | | | | | | | + + + +---------+------+------+-------+ | | Place 1 each | | 0 | | | Activ | | etonogestrel-ethinyl | vaginally See Admin | | | | | e | | estradiol | Instructions. Insert | | | | | | | (NUVARING) | vaginally and leave | | | | | | | 0.12-0.015 MG/24HR | in place for 3 | | | | | | | vaginal ring | consecutive weeks, | | | | | | | | then remove for 1 | | | | | | | | week. | | | | | | + + + +---------+------+------+-------+ Active Problems + + + | Problem | Noted Date | + + + | Diarrhea | 10/14/2012 | + + + | Abdominal pain, left lower quadrant | 10/14/2012 | + + + | HYPERTROPHY OF NASAL TURBINATES | 03/11/2011 | + + + | DEVIATED NASAL SEPTUM | 03/11/2011 | + + + | OTHER CHRONIC OTITIS EXTERNA | 03/11/2011 | + + + | OTITIS EXTERNA, ECZEMATOID | 03/22/2010 | + + + | GASTROENTERITIS | 06/05/2009 | + + + | MYALGIA | 06/01/2009 | + + + | HYPOGLYCEMIA, UNSPECIFIED | 03/07/2009 | + + + + + | Overview: ICD-10 Record update | + + + + + | IRRITABLE BOWEL SYNDROME | 02/14/2009 | + + + Family History + + +------+ + | Medical History | Relation | Name | Comments | + + +------+ + | Arthritis | Father | | | + + +------+ + | High blood pressure | Father | | | + + +------+ + | Other (see comment) | Father | | allergies; obesity | + + +------+ + | Arthritis | Mother | | | + + +------+ + | High blood pressure | Mother | | | + + +------+ + | Other (see comment) | Mother | | obesity; allergies | + + +------+ + | High blood pressure | Sister | | | + + +------+ + | Other (see comment) | Sister | | obesity | + + +------+ + + +------+--------+ + | Relation | Name | Status | Comments | + +------+--------+ + | Father | | Alive | | + +------+--------+ + | Mother | | Alive | | + +------+--------+ + | Sister | | Alive | | + +------+--------+ + Social History + +-------+ +--------+------+ | [...] on file | | + + + Last Filed Vital Signs + + + [...] | | + + + + + Plan of Treatment + + +-------+ + | Health Maintenance | Due Date | Last | Comments | | | | Done | | + + +-------+ + | Vaccine: | | | | | Dtap/Tdap/Td (1 - | 2 | | | | Tdap) | | | | + + +-------+ + | Cervical Cancer | | | | | Screening (Pap) | 4 | | | + + +-------+ + | Vaccine: Influenza | | | | | (#1) | 0 | | | + + +-------+ + Results Not on filefrom Last 3 Months Advance Directives + + + + + | Type | Date Recorded | Patient | Explanation | | | | Elderly Sitter | | + + + + + | Power of | | | | | Home Economist Consumer Service | | | | + + + + +
--- OUTSIDE RECORDS SUMMARY | ~2020-03-16 | XMS | Encounter Summary ---
Demographics + + + | Address | [address] | | | [place] [address] | + + + | Home Phone | | + + + | Preferred Language | Unknown | + + + | Marital Status | Single | + + + | Holiness Affiliation | 1013 | + + + | Race | Unknown | + + + | Ethnic Group | Unknown | + + + Author + + + | Author | [facility] | | | and Luca | + + + | Organization | [facility] | | | and [...] [place], [place] | | | | | [address] | | + + + + + | Arin Diop | ECON | [place], [place] | | | | | [address] | | + + + + + Care Team Providers + +------+ + | Care Solar Photovoltaic Designer Name | Role | Phone | + +------+ + PCP | Unavailable | + +------+ + Encounter Details +--------+ + + + + | Date | Type | Department | Care Team | Description | +--------+ + + + + | 04/30/ | Abstract | [facility] | [facility] | | | 2011 | | Conversion Location | SR | | | | | [address] | | | | | | [place], [place] | | | | | | [address] | | | | | | [phone] | | | +--------+ + + + [...] + + + | Blood Pressure | 124/83 | 02/26/2010 12:00 AM | | | | | PDT | | + + + + + | Pulse | - | - | | + [...] + + + + | Weight | 78.9 kg (174 lb) | 02/26/2010 12:00 AM | | | | | PDT | | + + + + + | Height | 160 cm (5' 3") | 02/26/2010 12:00 AM | | | | | PDT | | + + + + + | Body Mass Index | 30.82 | 02/26/2010 12:00 AM | | | | | PDT | | + + + + + documented in this encounter Plan of Treatment Not on filedocumented as of this encounter Visit Diagnoses Not on filedocumented in this encounter
--- NOTE | 2020-03-17 07:56 | PR ---
[facility] [address] [facility] [address] [place], [place] [address] Signed PP Progress Notes Datetime Report Generated by CPHermelinda: 03/17/2020 07:56 SUBJECTIVE: [id number] Pain: Within Normal Limits Pain Comments: Anxious and worried about baby Vital Signs: [id number] Vital Signs: Reviewed; Within Normal Limits EXAM: Ongoing Cardiovascular: Not Done Respiratory: Not Done Abdomen/Uterus: Abnormal Lochia: Normal Vulva/Perineum: Normal Breasts: Not Done CVA Tenderness: Not Done Extremities: Normal Incision: Not Applicable Progress: Abnormal Exam Comments: Fundus firm, NT @ U-1. H/H 11.9/36.2, WBC 18.1, plat 246k IMPRESSION/PLAN/PROCEDURES: [id number] Impression: Normal Progression Other Impression: Baby in nursery with respiratory issues Plan: Continue Present Management Progress Notes: Doing OK but just worried about baby. Will continue present care. Signing Physician: Any Gray MD Copies: ~ *Electronically Signed* 03/17/20 0756 ANY GRAY MD PATIENT NAME: MARKUSLUCION PROGRESS NOTE DATE OF : 89 PHYSICIAN: ANY GRAY MD RPT #: [id number] REPORT IS CONFIDENTIAL AND NOT TO BE RELEASED WITHOUT AUTHORIZATION
--- NOTE | 2020-03-18 03:58 | PR ---
[facility] [address] [facility] [place], [place] [address] Signed PP Progress Notes Datetime Report Generated by CPHermelinda: 03/18/2020 03:58 SUBJECTIVE: [id number] Pain: Within Normal Limits Pain Comments: Baby being transported to [facility] Vital Signs: [id number] Vital Signs: Reviewed; Within Normal Limits EXAM: Ongoing Cardiovascular: Not Done Respiratory: Not Done Abdomen/Uterus: Not Done Lochia: Not Done Vulva/Perineum: Not Done Breasts: Not Done CVA Tenderness: Not Done Extremities: Not Done Incision: Not Applicable Progress: Abnormal Exam Comments: Fundus firm, NT @ U-1. H/H 11.9/36.2, WBC 18.1, plat 246k IMPRESSION/PLAN/PROCEDURES: [id number] Impression: Normal Progression Other Impression: Baby to be transported to [facility] Plan: Continue Present Management Progress Notes: Pt is doing well but her baby is being transported to [facility]. It is reasonable to D/C her at this time to be with her child. Signing Physician: Any Gray MD Copies: ~ *Electronically Signed* 03/18/20 0358 ANY GRAY MD PATIENT NAME: LUCIO APARICIO PROGRESS NOTE DATE OF : 92 PHYSICIAN: ANY GRAY MD RPT #: [id number] REPORT IS CONFIDENTIAL AND NOT TO BE RELEASED WITHOUT AUTHORIZATION
== END 2020-03-18 07:15 | disposition home or self-care (01) | DRG 807 ==
LOC: FBC 18:02
PROVIDERS: ADMIT Obstetrics & Gynecology
PROC: 10E0XZZ Delivery of Products of Conception, External Approach (ICD-10-PCS; principal; 2020-03-16)
PROC: 0UQMXZZ Repair Vulva, External Approach (ICD-10-PCS; 2020-03-16)
PROC: 3E0S3BZ Introduction of Anesthetic Agent into Epidural Space, Percutaneous Approach (ICD-10-PCS; 2020-03-16)
PROC: 00HU33Z Insertion of Infusion Device into Spinal Canal, Percutaneous Approach (ICD-10-PCS; 2020-03-16)
DX: O42.013 Preterm premature rupture of membranes, onset of labor within 24 hours of rupture, third trimester (principal); Z37.0 Single live birth; O71.82 Other specified trauma to perineum and vulva; Z3A.36 36 weeks gestation of pregnancy; O99.214 Obesity complicating childbirth
CPT/HCPCS: 01960; 36415; 85027; A9270; J2540; J2795; J7121

== ENCOUNTER 2022-02-04 17:58 | Emergency (ER) | payer BC ==
[~2022-02-04] VITALS: Ht 162.6 cm; Wt 108.9 kg
[2022-02-04] MEDS ORDERED: IBU600 MG PO (21:42)
[2022-02-04] MEDS ORDERED: TYLENOL EXTRA500 MG PO (21:42)
[2022-02-04] MEDS ORDERED: ONDANSETRON ODT4 MG PO (21:53)
[2022-02-04] MEDS ORDERED: PAXLOVID CO-PA1 EAC1 PO (21:53)
== END 2022-02-04 22:22 | disposition home or self-care (01) ==
LOC: ED 17:58
DX: U07.1 COVID-19 (principal); Z88.5 Allergy status to narcotic agent; Z88.8 Allergy status to other drugs, medicaments and biological substances; Z88.2 Allergy status to sulfonamides
CPT/HCPCS: 36415; 80048; 85025; 87502; A9270; U0003